=== PATIENT | female | born 1965 | race Caucasian/White ===

== ENCOUNTER 2016-08-17 22:53 | Emergency (ER) | payer OTHER ==
[2016-08-18] MEDS ORDERED: TRAMADOL 50 MG TAB ONE (01:37)
[2016-08-18] MEDS ORDERED: CYCLOBENZAPRINE 10 MG TAB ONE (01:37)
== END 2016-08-18 02:08 | disposition home or self-care (01) ==
LOC: ER 22:53
CPT/HCPCS: 72050; 72072